=== PATIENT | female | born 1980 | race Hispanic/Latino ===

== ENCOUNTER → 2023-12-23 | Emergency (ER) | payer SELFPAY ==
[~2023-12-23] MED LIST: HYDROCODONE/APAP 10/325 TAB ONE; MUPIROCIN 2% OINT 22GM TUBE TOP ONE; SMZ./TMP. 800/160 MG TABLET ONE
--- NOTE | 2023-12-23 07:58 | EDPHYS ---
Physician Documentation [facility] Name: Wing Antonio Age: 43 yrs Sex: Female : 1980 Arrival Date: 12/23/2023 Time: 06:10 Bed 8 Private MD: ED Physician Rg García HPI: 12/22 07:52 This 43 yrs old Female presents to ER via EMS with complaints of fall, injury federico to right lower ext, with blisters. Historical: - Allergies: 06:42 No Known Allergies; km8 - Home Meds: 06:42 None [Active]; km8 - PMHx: 06:42 None; - PSHx: 06:42 heart ablation; - Immunization history:: Client reports receiving the 2nd dose of the Covid vaccine, Flu vaccine is up to date. - Social history:: Smoking status: Patient denies any tobacco usage or history of. Patient/guardian denies using alcohol, street drugs. ROS: 07:53 Constitutional: Negative for fever, chills, and weight loss, Eyes: Negative for injury, federico pain, redness, and discharge, ENT: Negative for injury, pain, and discharge, Neck: Negative for injury, pain, and swelling, Cardiovascular: Negative for chest pain, palpitations, and edema, Respiratory: Negative for shortness of breath, cough, wheezing, and pleuritic chest pain, Abdomen/GI: Negative for abdominal pain, nausea, vomiting, diarrhea, and constipation, Back: Negative for injury and pain, : Negative for injury, bleeding, discharge, and swelling, Neuro: Negative for headache, weakness, numbness, tingling, and seizure, Psych: Negative for depression, anxiety, suicide ideation, homicidal ideation, and hallucinations, Allergy/Immunology: Negative for hives, rash, and allergies, Endocrine: Negative for neck swelling, polydipsia, polyuria, polyphagia, and marked weight changes, Hematologic/Lymphatic: Negative for swollen nodes, abnormal bleeding, and unusual bruising, 07:53 MS/extremity: Positive for decreased range of motion, pain, swelling, tenderness, of the medial aspect of right calf, Exam: 07:53 Constitutional: This is a well developed, well nourished patient who is awake, alert, federico and in no acute distress. Head/Face: Normocephalic, atraumatic. Eyes: Pupils equal round and reactive to light, extra-ocular motions intact. Lids and lashes normal. Conjunctiva and sclera are non-icteric and not injected. Cornea within normal limits. Periorbital areas with no swelling, redness, or edema. ENT: Nares patent. No nasal discharge, no septal abnormalities noted. Tympanic membranes are normal and external auditory canals are clear. Oropharynx with no redness, swelling, or masses, exudates, or evidence of obstruction, uvula midline. Mucous membranes moist. Neck: Trachea midline, no thyromegaly or masses palpated, and no cervical lymphadenopathy. Supple, full range of motion without nuchal rigidity, or vertebral point tenderness. No Meningismus. Chest/axilla: Normal chest wall appearance and motion. Nontender with no deformity. No lesions are appreciated. Cardiovascular: Regular rate and rhythm with a normal S1 and S2. No gallops, murmurs, or rubs. Normal PMI, no JVD. No pulse deficits. Respiratory: Lungs have equal breath sounds bilaterally, clear to auscultation and percussion. No rales, rhonchi or wheezes noted. No increased work of breathing, no retractions or nasal flaring. Abdomen/GI: Soft, non-tender, with normal bowel sounds. No distension or tympany. No guarding or rebound. No evidence of tenderness throughout. Back: No spinal tenderness. No costovertebral tenderness. Full range of motion. Neuro: Awake and alert, GCS 15, oriented to person, place, time, and situation. Cranial nerves II-XII grossly intact. Motor strength 5/5 in all extremities. Sensory grossly intact. Cerebellar exam normal. Normal gait. Psych: Awake, alert, with orientation to person, place and time. Behavior, mood, and affect are within normal limits. 07:53 Skin: induration, injury, blisters medially , Vital Signs: 06:13 BP 122 / 103; Pulse 90; Resp 16; Temp 97.4(TE); Pulse Ox 97% on R/A; Weight 62.14 kg km8 (R); Height 4 ft. 10 in. (R); Pain 10/10; 06:30 BP 123 / 101; Pulse 92; Resp 16; Pulse Ox 97% on R/A; km8 07:00 BP 131 / 105; Pulse 88; Resp 16; Pulse Ox 98% on R/A; km8 09:06 BP 127 / 99; Pulse 70; Resp 16; Pulse Ox 98% on R/A; iw 06:13 Body Mass Index 28.63 (62.14 kg, 147.32 cm) km8 06:13 Pain Scale: Adult km8 [place] Coma Score: 06:13 Eye Response: spontaneous(4). Motor Response: obeys commands(6). Verbal Response: km8 oriented(5). Total: 15. MDM: 07:10 Patient medically screened. federico 07:54 Differential diagnosis: closed fracture, contusion, abrasion, tendonitis, sprain. Data federico reviewed: vital signs, nurses notes, radiologic studies, plain films. Consideration of Admission/Observation Escalation of care including admission/observation considered. Independent interpretation of the following test(s) in the Emergency Department X-Ray: My interpretation is ro fx. Test considered but Not performed: Labs: no labs. Historians other than the Patient: Parent: mom well informed. Care significantly affected by the following chronic conditions: Cancer. 12/22 07:51 Order name: [facility] 12/22 07:51 Order name: Tib Fib Right [facility] 12/22 07:51 Order name: Wound dressing [facility] 12/22 07:53 Order name: PO challenge; Complete Time: 08:20 federico Administered Medications: 08:19 Drug: Mupirocin Topical Ointment 2 % 1 application Topical once {Note: right leg.} jp5 Route: Topical; Site: wound; 08:19 Drug: [place] PO 10 mg-325 mg 1 tabs PO once Route: PO; jp5 08:19 Drug: Trimethoprim-Sulfamethoxazole PO (160 mg-800 mg (DS) 1 tablet PO once Route: PO; jp5 Disposition Summary: 12/23/23 07:56 Discharge Ordered Notes: Location: Home federico Problem: new federico Symptoms: have improved federico Condition: Stable federico Diagnosis - Pain in right lower leg federico - Blister (nonthermal), right lower leg, initial encounter federico - Contusion of right lower leg, initial encounter federico Followup: federico - With: Private Physician - When: 2 - 3 days - Reason: Recheck today's complaints, Continuance of care, Re-evaluation by your physician Followup: federico - With: Noe Suarez MD - When: 2 - 3 days - Reason: Recheck today's complaints, Continuance of care, Re-evaluation by your physician Discharge Instructions: - Discharge Summary Sheet federico - Abrasion federico - Blisters, Adult federico - Contusion federico - Hematoma federico - Hematoma, [id number] federico - Musculoskeletal Pain federico - Contusion, [id number]-[id number] federico - Abrasion, [id number] federico Forms: - Medication Reconciliation Form federico - Thank You Letter federico - Antibiotic Education federico - Prescription Opioid Use federico - Patient Portal Instructions federico - Leadership Thank You Letter federico - Work release form eb Prescriptions: - Centany 2 % Topical ointment - apply 1 application TOPICAL route 3 times per day; 45 gram tube; [facility] Product Selection Permitted - acetaminophen-codeine 300-30 mg Oral tablet - take 2 tablet ORAL route every 6 hours; 18 tablet; Refills: 0, Product [facility] Selection Permitted - Bactrim DS 800-160 mg Oral Tablet - take 1 tablet ORAL route every 12 hours for 10 days; 20 tablet; Refills: 0, [facility] Product Selection Permitted Signatures: Dispatcher [employer] Rg Pagan MD MD cha Marx, Katie, RN RN km8 Lata Hernandez, RN RN jp5
--- NOTE | 2023-12-23 07:58 | ER ---
Nurse's Notes [facility] Name: Wing Antonio Age: 43 yrs Sex: Female : 1980 Arrival Date: 12/23/2023 Time: 06:10 Bed 8 Private MD: Diagnosis: Pain in right lower leg;Blister (nonthermal), right lower leg, initial encounter;Contusion of right lower leg, initial encounter Presentation: 12/22 06:13 Chief complaint: Patient states: right ankle/leg pain after a fall during the night; km8 unknown what she hit EMS states: toned out for right leg/ankle pain with swelling and blisters noted. Coronavirus screen: Client denies travel out of the [place] in the last 14 days. Ebola Screen: No symptoms or risks identified at this time. Initial Sepsis Screen: Does the patient meet any 2 criteria? HR > 90 bpm. No. Patient's initial sepsis screen is negative. Does the patient have a suspected source of infection? No. Patient's initial sepsis screen is negative. Risk Assessment: Do you want to hurt yourself or someone else? Patient reports no desire to harm self or others. Onset of symptoms was December 23, 2023. 06:13 Method Of Arrival: EMS: [facility] km8 06:13 Acuity: RAD 3 km8 Triage Assessment: 06:13 General: Appears in no apparent distress. uncomfortable, Behavior is calm, cooperative, km8 appropriate for age. Pain: Complains of pain in right leg Pain currently is 10 out of 10 on a pain scale. EENT: No signs and/or symptoms were reported regarding the EENT system. Neuro: Level of Consciousness is awake, alert, obeys commands, Oriented to person, place, time, situation. Cardiovascular: Denies chest pain, shortness of breath, Patient's skin is warm and dry. Respiratory: Airway is patent Respiratory effort is even, unlabored, Respiratory pattern is regular, symmetrical. GI: No signs and/or symptoms were reported involving the gastrointestinal system. : No signs and/or symptoms were reported regarding the genitourinary system. Derm: Skin is healthy with good turgor, Skin is dry, Skin is normal, Skin temperature is warm Wound noted Other: blisters to RLE. Musculoskeletal: No signs and/or symptoms reported regarding the musculoskeletal system. Range of motion: intact in all extremities. Historical: - Allergies: 06:42 No Known Allergies; km8 - Home Meds: 06:42 None [Active]; km8 - PMHx: 06:42 None; 8 - PSHx: 06:42 heart ablation; 8 - Immunization history:: Client reports receiving the 2nd dose of the Covid vaccine, Flu vaccine is up to date. - Social history:: Smoking status: Patient denies any tobacco usage or history of. Patient/guardian denies using alcohol, street drugs. Screenin:13 [facility] ED Fall Risk Assessment (Adult) History of falling in the last 3 months, [facility] including since admission Yes- single mechanical fall (1 pt) Confusion or Disorientation No (0 pts) Intoxicated or Sedated No (0 pts) Impaired Gait Yes (1 pt) Mobility Assist Device Used No (0 pt) Altered Elimination No (0 pt) Score/Fall Risk Level 0 - 2 = Low Risk Oriented to surroundings, Maintained a safe environment, Educated pt \T\ family on fall prevention, incl call for assistance when getting out of bed, Assessed \T\ reinforced patient's understanding of fall precautions. Abuse screen: Denies threats or abuse. Denies injuries from another. Nutritional screening: No deficits noted. Tuberculosis screening: No symptoms or risk factors identified. Assessment: :13 Reassessment: see triage assessment. [facility] Vital Signs: 06:13 BP 122 / 103; Pulse 90; Resp 16; Temp 97.4(TE); Pulse Ox 97% on R/A; Weight 62.14 kg km8 (R); Height 4 ft. 10 in. (R); Pain 10/10; 06:30 BP 123 / 101; Pulse 92; Resp 16; Pulse Ox 97% on R/A; km8 07:00 BP 131 / 105; Pulse 88; Resp 16; Pulse Ox 98% on R/A; km8 09:06 BP 127 / 99; Pulse 70; Resp 16; Pulse Ox 98% on R/A; iw 06:13 Body Mass Index 28.63 (62.14 kg, 147.32 cm) [facility] 06:13 Pain Scale: Adult [facility] [place] Coma Score: 06:13 Eye Response: spontaneous(4). Motor Response: obeys commands(6). Verbal Response: km8 oriented(5). Total: 15. ED Course: 06:13 Patient arrived in ED. km8 06:13 Arm band placed on right wrist. km8 06:13 Patient has correct armband on for positive identification. Bed in low position. Call km8 light in reach. Side rails up X2. Pulse ox on. NIBP on. Door closed. Noise minimized. Lights dimmed. 06:13 Patient maintains SpO2 saturation greater than 95% on room air. km8 06:37 Camilla Branch, RN is Primary Nurse. km8 06:41 Triage completed. km8 07:10 Rg García MD is Attending Physician. federico 07:29 Report given to MARIANGEL Vu. km8 07:55 Noe Suarez MD is Referral Physician. federico 08:10 Foot Right 3 View XRAY In Process Unspecified. EDMS 08:10 Tib Fib Right XRAY In Process Unspecified. EDMS 09:06 No provider procedures requiring assistance completed. Patient did not have IV access iw during this emergency room visit. Wound care: to burn located on medial aspect of right calf and right leg was dressed with 4X4s, cling, Patient tolerated well. Administered Medications: 08:19 Drug: Mupirocin Topical Ointment 2 % 1 application Topical once {Note: right leg.} jp5 Route: Topical; Site: wound; 08:19 Drug: [place] PO 10 mg-325 mg 1 tabs PO once Route: PO; jp5 08:19 Drug: Trimethoprim-Sulfamethoxazole PO (160 mg-800 mg (DS) 1 tablet PO once Route: PO; jp5 Medication: 09:00 VIS not applicable for this client. iw Outcome: 07:56 Discharge ordered by . federico 09:06 Discharged to home via wheelchair, with family, iw 09:06 Condition: good 09:06 Discharge instructions given to patient, Instructed on discharge instructions, follow up and referral plans. medication usage, Demonstrated understanding of instructions, follow-up care, medications, Prescriptions given X 3, 09:07 Patient left the ED. iw Signatures: Dispatcher [employer] EDMS Rg García MD MD cha Williams, Irene, RN RN iw Camilla Branch RN RN km8 Lata Hernandez RN RN jp5
--- NOTE | 2023-12-23 08:41 | RAD REPORT ---
EXAM DESCRIPTION: RAD - Foot Right 3 View - 12/23/2023 8:08 am CLINICAL HISTORY: PAIN COMPARISON: No comparisons FINDINGS: Soft tissue swelling is seen along the medial aspect of the foot and ankle. Tiny calcaneal spurs. No acute fracture or dislocation seen.
--- NOTE | 2023-12-23 08:45 | RAD REPORT ---
EXAM DESCRIPTION: RAD - Tib Fib Right - 12/23/2023 8:09 am CLINICAL HISTORY: PAIN COMPARISON: Foot Right 3 View dated 12/23/2023 FINDINGS: Soft tissue swelling is seen anteriorly. No acute fracture or dislocation evident.
[2023-12-23 09:16] VITALS: BP 127/99; TEMP 97.4; O2SAT 98
== END ==
LOC: ER 06:10
DX: S80.821A Blister (nonthermal), right lower leg, initial encounter (principal); S80.11XA Contusion of right lower leg, initial encounter
CPT/HCPCS: 99284